=== PATIENT | female | born 1990 | race Caucasian/White ===

== ENCOUNTER 2022-03-27 12:00 | Emergency (ER) | payer BC, SELFPAY ==
[2022-03-27] MEDS ORDERED: Acetaminophen 500 MG TAB ONE (13:06)
[2022-03-27] MEDS ORDERED: Magnesium 2 GM/50 ML BAG (IN WATER) ONE (13:06)
[2022-03-27] MEDS ORDERED: Ketorolac Tromethamine 30 MG/ML VIAL ONE (13:07)
[2022-03-27] MEDS ORDERED: diphenhydrAMINE 50 MG/ML VIAL ONE (13:07)
[2022-03-27] MEDS ORDERED: Prochlorperazine 10 MG/2 ML VIAL IVP SCH (14:00)
[2022-03-27 14:01] LABS: #Basophils 0.1 thou/uL (0.0-0.2); #Lymphocytes 1.3 thou/uL (1.20-3.40); #Monocytes 0.4 thou/uL (0.11-0.59); #Neutrophils 5.1 thou/uL (1.40-6.50); %Basophils 1.2 % (0.0-1.0); %Eosinophils 0.3 % (0.0-10.0); %Lymphocytes 18.8 % (21.0-51.0); %Monocytes 5.9 % (0.0-10.0); %Neutrophils 73.7 % (42.0-75.0); Hemoglobin 9.9 g/dL (12.0-16.0); Mean Corpuscular HGB CONC 30.3 g/dL (32.0-36.0); Mean Corpuscular Hemoglobin 21.1 pg (27.0-31.0); Mean Corpuscular Volume 69.7 fl (78.0-98.0); Mean Platelet Volume 9.3 fL (7.4-10.4); Platelet Count 391 10x3/uL (130-400); RBC Distribution Width 15.4 % (11.5-14.5); Red Blood Cell (RBC) Count 4.68 mill/uL (4.20-5.40); White Blood Cell (WBC) Count 6.9 10x3/uL (4.8-10.8)
[2022-03-27 14:04] LABS: Bilirubin Negative (Negative); Blood, Urine Negative (Negative); Clarity Clear (Clear); Glucose, Urine (Dipstick) Normal (Negative); Ketone, Urine Negative (Negative); Leukocyte Negative Leu/uL (Negative); Nitrite Negative (Negative); Protein, Urine (Dipstick) Negative (Neg-Trace); Specific Gravity, Urine 1.013 (1.002-1.036); Urobilinogen Normal mg/dL (Less than 2); pH, Urine 7.5 (5.0-9.0)
[2022-03-27 14:12] LABS: BHCG - Serum Negative (NEGATIVE); Pregs Control Background? CLEAR/WHITE (CLR/WHITE); Pregs Control Bar Appear? YES (CONTROL BAR)
[2022-03-27 14:17] LABS: Hypochromia SLIGHT = 6-15 cells (100X) (0-5/hpf); MDiff Complete? YES; Microcytosis SLIGHT = 6-15 cells (100X) (0-5/hpf); Ovalocytes SLIGHT = 2-5 cells (100X) (0-1/hpf); Platelet Morphology Comment Appears Adequate; Polychromasia SLIGHT = 2-3 cells (100X) (0-2/hpf)
[2022-03-27 14:21] LABS: ALT (SGPT) 14 U/L (8-55); AST (SGOT) 19 U/L (5-34); Albumin 4.5 g/dL (3.5-5.0); Alkaline Phosphatase 60 U/L (40-110); Anion Gap 11 mmol/L (10-20); BUN (Urea Nitrogen) 9 mg/dL (7.0-18.7); Bilirubin, Total 0.3 mg/dL (0.2-1.2); Calc. Creatinine Clearance 0 mL/min (70-130); Calcium 9.6 mg/dL (7.8-10.44); Carbon Dioxide 26 mmol/L (22-29); Chloride 103 mmol/L (98-107); Estimated GFR 119; Globulin 3.4 g/dL (2.4-3.5); Glucose 106 mg/dL (70-105); Potassium 3.8 mmol/L (3.5-5.1); Protein, Total 7.9 g/dL (6.0-8.3); Sodium 136 mmol/L (136-145)
[2022-03-27] MEDS ORDERED: LORazepam 2 MG/ML SYR.(CARPUJECT) ONE (15:04)
== END 2022-03-27 16:40 | disposition home or self-care (01) ==
LOC: ERS 12:00
DX: G43.909 Migraine, unspecified, not intractable, without status migrainosus (principal); Z87.891 Personal history of nicotine dependence
CPT/HCPCS: 70450; 80053; 81003; 84443; 84703; 85025; 96365; 96375; J0780; J1200; J1885; J2060; J3475

== ENCOUNTER 2022-04-03 07:35 | Outpatient (CLI) | payer BC | END 2022-04-03 07:36 | disposition home or self-care (01) | LOC: SCSMRI 07:35 | PROVIDERS: ATTEND Family Medicine Sports Medicine | DX: G44.89 Other headache syndrome (principal); R79.89 Other specified abnormal findings of blood chemistry; R90.82 White matter disease, unspecified | CPT/HCPCS: 70553 ==